=== PATIENT | female | born 1990 | race Caucasian/White ===

== ENCOUNTER 2017-03-02 09:21 | Inpatient (IN) | payer OTHER ==
--- NOTE | 2017-03-02 09:38 | PDOC ---
History of Present Illness <Chilo Whyte - Last Filed: 03/02/17 18:12> - General History Source: Patient Exam Limitations: No Limitations - History of Present Illness Initial Comments: 03/02/17 10:32 The patient is a 26 year old female with no significant past medical history, who presents to the ED with lower left abdominal pain since 6 AM today. Patient states she has associated symptoms of nausea and vomiting. She states she hasn' t eaten anything all day. She had advil but with little to no alleviation. Patient states her last bowel movement was yesterday. Patient denies fever, chills, diarrhea, constipation, hematochezia. Denies dysuria, frequency, hematuria. LMP: Currently 3 days in. <Ben Benito - Last Filed: 03/02/17 18:36> - General Stated Complaint: ABDOMINAL PAIN Past History - Past Medical History Asthma: No Cancer: No Cardiac Disorders: No Diabetes: No HTN: No Seizures: No Thyroid Disease: No - Psycho/Social/Smoking Cessation Hx Smoking History: Never smoked Have you smoked in the past 12 months: No Hx Alcohol Use: No Drug/Substance Use Hx: No Hx Substance Use Treatment: No <Chilo Whyte - Last Filed: 03/02/17 18:12> <Ben Benito - Last Filed: 03/02/17 18:36> - Past Medical History Allergies/Adverse Reactions: Allergies Allergy/AdvReac Type Severity Reaction Status Date / Time No Known Allergies Allergy Verified 03/02/17 09:34 Home Medications: Ambulatory Orders NK [No Known Home Medication] 03/02/17 Review of Systems - Review of Systems Able to Perform ROS?: Yes Comments:: 03/02/17 10:32 GENERAL/CONSTITUTIONAL: No fever or chills. No weakness. HEAD, EYES, EARS, NOSE AND THROAT: No change in vision. No ear pain or discharge. No sore throat. CARDIOVASCULAR: No chest pain or shortness of breath. RESPIRATORY: No cough, wheezing, or hemoptysis. GASTROINTESTINAL: + lower left quadrant abdominal pain. + nausea + vomiting. No diarrhea or constipation. GENITOURINARY: No dysuria, frequency, or change in urination. MUSCULOSKELETAL: No joint or muscle swelling or pain. No neck or back pain. SKIN: No rash NEUROLOGIC: No headache, vertigo, loss of consciousness, or change in strength/ sensation. ENDOCRINE: No increased thirst. No abnormal weight change. HEMATOLOGIC/LYMPHATIC: No anemia, easy bleeding, or history of blood clots. ALLERGIC/IMMUNOLOGIC: No hives or skin allergy. <Ben Benito - Last Filed: 03/02/17 18:36> *Physical Exam - Vital Signs Last Vital Signs Temp Pulse Resp BP Pulse Ox 97.4 F L 63 18 112/74 98 03/02/17 09:34 03/02/17 09:34 03/02/17 09:34 03/02/17 09:34 03/02/17 09:34 - Physical Exam Comments: 03/02/17 10:33 GENERAL: Awake, alert, and fully oriented, in no acute distress HEAD: No signs of trauma EYES: PERRLA, EOMI, sclera anicteric, conjunctiva clear ENT: Auricles normal inspection, hearing grossly normal, nares patent, oropharynx clear without exudates. Moist mucosa NECK: Normal ROM, supple, no lymphadenopathy, JVD, or masses LUNGS: Breath sounds equal, clear to auscultation bilaterally. No wheezes, and no crackles HEART: Regular rate and rhythm, normal S1 and S2, no murmurs, rubs or gallops ABDOMEN: Tender in left lower quadrant. But not over the anexa. No peritoneal signs or rebound. Soft, normoactive bowel sounds. No guarding, no rebound. No masses. EXTREMITIES: Normal range of motion, no edema. No clubbing or cyanosis. No cords, erythema, or tenderness NEUROLOGICAL: Cranial nerves II through XII grossly intact. Normal speech, normal gait SKIN: Warm, Dry, normal turgor, no rashes or lesions noted. <Ben Benito - Last Filed: 03/02/17 18:36> ED Treatment Course - LABORATORY CBC & Chemistry Diagram: 03/02/17 10:02 03/02/17 10:02 <Chilo Whyte - Last Filed: 03/02/17 18:12> - LABORATORY CBC & Chemistry Diagram: 03/02/17 10:02 03/02/17 10:02 - RADIOLOGY Radiology Studies Ordered: 03/02/17 17:52 EXAM: CT ABDOMEN AND PELVIS WITH IV AND ORAL CONTRAST REASON FOR EXAM: Abdominal pain COMPARISON: None FINDINGS: Lower lung delcid are clear. The gallbladder is distended with edematous appearing gallbladder wall. There are 2 large 2-3 cm size gallstone near the gallbladder neck. Liver, pancrease, spleen , adrenal glands are within normal. No renal stones are seen or evidence of obstructive uropathy. Abdominal aorta without AAA or dissection. IVC patent. There is no retroperitoneal hemorrhage or pathologic adenopathy. The appendix is normal. No evidence of bowel obstruction, ascites, abscess, free air or diverticulitis. Bladder and uterus grossly unremarkable. Spine and bony pelvis is without fracture or destructive suspicious lesion. IMPRESSION: Cholelithiasis with distended and edematous gallbladder wall suggesting cholecystitis Appendix normal THIS DOCUMENT HAS BEEN ELECTRONICALLY SIGNED Beata Waldrop D.O. - Medications Given in the ED: ED Medications Discontinued Medications Generic Name Dose Route Start Last Admin Trade Name Freq PRN Reason Stop Dose Admin Morphine Sulfate 4 mg 03/02/17 10:03 03/02/17 10:16 Morphine Injection - IVPUSH 03/02/17 10:04 4 mg ONCE ONE Administration Ondansetron HCl 4 mg 03/02/17 10:03 03/02/17 10:16 Zofran Injection IVPUSH 03/02/17 10:04 4 mg ONCE ONE Administration <Ben Benito - Last Filed: 03/02/17 18:36> Medical Decision Making - Medical Decision Making 03/02/17 18:[address] Cardoza. <Ben Benito - Last Filed: 03/02/17 18:36> *DC/Admit/Observation/Transfer - Discharge Dispostion Admit: Yes - Attestations Physician Attestion: 03/02/17 09:37 I, Dr. Chilo Whyte, attest that this document has been prepared under my direction and personally reviewed by me in its entirety. I further attest, that it accurately reflects all work, treatment, procedures and medical decision -making performed by me. <Chilo Whyte - Last Filed: 03/02/17 18:12> - Attestations Scribe Attestion: 03/02/17 10:34 Documentation prepared by Ben Benito, acting as medical sonographer for Chilo Whyte MD/. <Ben Benito - Last Filed: 03/02/17 18:36> Diagnosis at time of Disposition: Acute cholecystitis due to biliary calculus - Discharge Dispostion Condition at time of disposition: Unchanged/Unknown
[2017-03-02] MEDS ORDERED: ONDANSETRON 4 MG/2 ML VIAL IVPUSH ONE ×2 (10:03→14:34)
[2017-03-02] MEDS ORDERED: morphine CARPU-JECT 4 MG/1 ML DISP.SYRIN IVPUSH ONE (10:03)
[2017-03-02] MEDS ORDERED: SODIUM CHLORIDE 1,000 ML IV STA ×2 (10:05→14:11)
[2017-03-02] MEDS ORDERED: ONDANSETRON 4 MG/2 ML VIAL ONE ×2 (10:06→14:35)
[2017-03-02] MEDS ORDERED: morphine CARPU-JECT 4 MG/1 ML DISP.SYRIN ONE (10:06)
[2017-03-02 10:39] LABS: BASOPHIL 0.3 % (0-2.0); EOSINOPHIL 0.2 % (0-4.5); MCH 30.9 pg (25.7-33.7); MEAN CELL VOLUME 93.5 fl (80-96); MEAN PLT VOLUME 10.3 fl (7.5-11.1); NEUTROPHILS 80.1 % (42.8-82.8); PLATELET COUNT 171 K/MM3 (134-434); RDW 13.8 % (11.6-15.6); WHITE BLOOD COUNT 8.6 K/mm3 (4.0-10.0)
[2017-03-02 10:56] LABS: ALBUMIN 3.5 g/dl (3.4-5.0); ALK PHOS 66 U/L (45-117); ANION GAP 7 (8-16); BILIRUBIN,TOTAL 0.3 mg/dL (0.2-1.0); CALCIUM 8.7 mg/dL (8.5-10.1); CO2 26 mmol/L (21-32); CREATININE 0.8 mg/dL (0.55-1.02); GLUCOSE,RANDOM 96 mg/dL (74-106); SGOT/AST 21 U/L (15-37); SGPT/ALT 31 U/L (12-78); TOT PROT 7.3 g/dl (6.4-8.2)
[2017-03-02 10:58] LABS: INR 1.09 (0.82-1.09)
[2017-03-02 14:00] LABS: URINE APPEARANCE CLEAR; URINE BILIRUBIN NEGATIVE (NEGATIVE); URINE BLOOD 3+ (NEGATIVE); URINE COLOR LTYELLOW; URINE GLUCOSE (UA) NEGATIVE (NEGATIVE); URINE KETONE 1+ (NEGATIVE); URINE LEUK ESTERASE NEGATIVE (NEGATIVE); URINE NITRITE NEGATIVE (NEGATIVE); URINE PROTEIN NEGATIVE (NEGATIVE); URINE UROBILINOGEN NEGATIVE mg/dL (0.2-1.0)
[2017-03-02] MEDS ORDERED: KETOROLAC TROMETHAMINE 30 MG/1 ML VIAL ONE (14:10)
[2017-03-02] MEDS ORDERED: KETOROLAC TROMETHAMINE 30 MG/1 ML VIAL IVPUSH ONE (14:11)
[2017-03-02 14:24] LABS: URINE BACTERIA RARE /hpf (NONE SEEN); URINE MUCUS RARE; URINE RBC 1 /hpf (0-3); URINE WBC 6 /hpf (3-5)
[2017-03-02] MEDS ORDERED: LEVOFLOXACIN 500 MG IVPB 100 ML IVPB ONE ×2 (19:35→19:46)
[2017-03-02] MEDS ORDERED: METRONIDAZOLE 500 MG PREMIXED 100 ML IVPB ONE ×2 (19:36→19:46)
--- NOTE | 2017-03-02 19:51 | PN ---
Teaching Attending Note Name of Resident: Daryl Zelaya ATTENDING PHYSICIAN STATEMENT I saw and evaluated the patient. I reviewed the resident's note and discussed the case with the resident. I agree with the resident's findings and plan as documented. SUBJECTIVE: 26 yo F with no Pmhx who presents w LL abdominal pain. Pain started at 6 am. Also, notes associated nausea and vomiting. Denies any fevers or chills. Currently denies any n/v/d. No chest pain or pressure. States pain is also on her right side. Notes no continued nausea and vomiting. OBJECTIVE: Physical: VS: GEN: NAD, resting in bed HEENT: NCAT, PERRL, Throat without erythema or exudates CARD: RRR S1, S2 RESP: CTAB ABD: BS X4, Right upper quadrant pain on palpation EXT: - C/C/E CBCD WBC 8.6 K/mm3 (4.0-10.0) D 03/02/17 10:02 RBC 4.12 M/mm3 (3.60-5.2) 03/02/17 10:02 Hgb 12.7 GM/dL (10.7-15.3) 03/02/17 10:02 Hct 38.6 % (32.4-45.2) 03/02/17 10:02 MCV 93.5 fl (80-96) 03/02/17 10:02 MCHC 33.0 g/dl (32.0-36.0) 03/02/17 10:02 RDW 13.8 % (11.6-15.6) 03/02/17 10:02 Plt Count 171 K/MM3 (134-434) D 03/02/17 10:02 MPV 10.3 fl (7.5-11.1) 03/02/17 10:02 CMP Sodium 141 mmol/L (136-145) 03/02/17 10:02 Potassium 3.9 mmol/L (3.5-5.1) 03/02/17 10:02 Chloride 108 mmol/L (98-107) H 03/02/17 10:02 Carbon Dioxide 26 mmol/L (21-32) D 03/02/17 10:02 Anion Gap 7 (8-16) L 03/02/17 10:02 BUN 10 mg/dL (7-18) D 03/02/17 10:02 Creatinine 0.8 mg/dL (0.55-1.02) D 03/02/17 10:02 Creat Clearance w eGFR > 60 (>60) 03/02/17 10:02 Random Glucose 96 mg/dL (74-106) 03/02/17 10:02 Calcium 8.7 mg/dL (8.5-10.1) 03/02/17 10:02 Total Bilirubin 0.3 mg/dL (0.2-1.0) 03/02/17 10:02 AST 21 U/L (15-37) 03/02/17 10:02 ALT 31 U/L (12-78) 03/02/17 10:02 Alkaline Phosphatase 66 U/L (45-117) 03/02/17 10:02 Total Protein 7.3 g/dl (6.4-8.2) 03/02/17 10:02 Albumin 3.5 g/dl (3.4-5.0) 03/02/17 10:02 03/02/17 17:52 EXAM: CT ABDOMEN AND PELVIS WITH IV AND ORAL CONTRAST REASON FOR EXAM: Abdominal pain COMPARISON: None FINDINGS: Lower lung delcid are clear. The gallbladder is distended with edematous appearing gallbladder wall. There are 2 large 2-3 cm size gallstone near the gallbladder neck. Liver, pancrease, spleen , adrenal glands are within normal. No renal stones are seen or evidence of obstructive uropathy. Abdominal aorta without AAA or dissection. IVC patent. There is no retroperitoneal hemorrhage or pathologic adenopathy. The appendix is normal. No evidence of bowel obstruction, ascites, abscess, free air or diverticulitis. Bladder and uterus grossly unremarkable. Spine and bony pelvis is without fracture or destructive suspicious lesion. IMPRESSION: Cholelithiasis with distended and edematous gallbladder wall suggesting cholecystitis Appendix normal THIS DOCUMENT HAS BEEN ELECTRONICALLY SIGNED Sonia Ponce ASSESSMENT AND PLAN: 26 F with no pmhx presents with abdominal pain found to have acute choleycystitis 1.) Acute Choleycystitis - NPO - IVF - Levaquin/Flagyl - Surgical consult - Coags, cbc - Type & Screen - Pain Control 2.) DVT PPX - Low Risk- Ambulate Place in Med-Sx
--- NOTE | 2017-03-02 20:23 | HP ---
CHIEF COMPLAINT: Left lower abdominal pain, Nausea, vomiting. PCP: NO PCP , Last seen by Doctor 2 years ago. HISTORY OF PRESENT ILLNESS: Patient is 26 Years old female with no PMH who presented to the Ed today due to left lower quadrant abdominal pain, associated with nausea and vomiting. The pain started at 6 AM , 10/10, non radiated, constant, worsen with food, improves a little with advil. She had four episode of non bloody, green, vomiting. She had similar symptoms multiple times last month, and tow years ago. Patient denies any fever, chills, sick contact, Diarrhea, constipation, change in stool color, Hematochezia, hemoptysis, hematuria. She denies any headache, blurry vision, chest pain , palpitation, or urinary symptoms. Her last Menstrual period 3 days in. ER course was notable for: (1)IV fluids NS (2)Pain control: IV Morphine (3)CXR: No acute pathology Recent Travel:NO PAST MEDICAL HISTORY:None PAST SURGICAL HISTORY:None Social History: Smoking:None Alcohol:None Drugs: None Family History: Allergies No Known Allergies Allergy (Verified 03/02/17 09:34) HOME MEDICATIONS: Home Medications Medication Instructions Recorded NK [No Known Home Medication] 03/02/17 REVIEW OF SYSTEMS CONSTITUTIONAL: Absent: fever, chills, diaphoresis, generalized weakness, malaise, loss of appetite, weight change HEENT: Absent: rhinorrhea, nasal congestion, throat pain, throat swelling, difficulty swallowing, mouth swelling, ear pain, eye pain, visual changes CARDIOVASCULAR: Absent: chest pain, syncope, palpitations, irregular heart rate, lightheadedness , peripheral edema RESPIRATORY: Absent: cough, shortness of breath, dyspnea with exertion, orthopnea, wheezing, stridor, hemoptysis GASTROINTESTINAL: Absent:Left periumbilical abdominal pain, abdominal distension,+ nausea, vomiting, diarrhea, constipation, melena, hematochezia GENITOURINARY: Absent: dysuria, frequency, urgency, hesitancy, hematuria, flank pain, genital pain MUSCULOSKELETAL: Absent: myalgia, arthralgia, joint swelling, back pain, neck pain SKIN: Absent: rash, itching, pallor HEMATOLOGIC/IMMUNOLOGIC: Absent: easy bleeding, easy bruising, lymphadenopathy, frequent infections ENDOCRINE: Absent: unexplained weight gain, unexplained weight loss, heat intolerance, cold intolerance NEUROLOGIC: Absent: headache, focal weakness or paresthesias, dizziness, unsteady gait, seizure, mental status changes, bladder or bowel incontinence PSYCHIATRIC: Absent: anxiety, depression, suicidal or homicidal ideation, hallucinations. PHYSICAL EXAMINATION Vital Signs - 24 hr 03/02/17 20:05 Pulse Rate [ 76 Apical] Respiratory 18 Rate Blood Pressure 119/83 [Right Arm] O2 Sat by Pulse 99 Oximetry (%) GENERAL: Awake, alert, and fully oriented, in no acute distress. Moist mucous membranes. HEAD: Normal with no signs of trauma. EYES: Pupils equal, round and reactive to light, extraocular movements intact, sclera anicteric, conjunctiva clear. No lid lag. NECK: Normal range of motion, supple without lymphadenopathy, JVD, or masses. LUNGS: Breath sounds equal, clear to auscultation bilaterally. No wheezes, and no crackles. No accessory muscle use. HEART: Regular rate and rhythm, normal S1 and S2 without murmur, rub or gallop. ABDOMEN: Soft, L periumbilical tenderness, not distended, normoactive bowel sounds, no guarding, no rebound, no masses. No hepatomegaly or splenomegaly.+ Linares sign. Tender to deep palpation in RUQ. MUSCULOSKELETAL: Normal range of motion at all joints. No bony deformities or tenderness. No CVA tenderness. UPPER EXTREMITIES: 2+ pulses, warm, well-perfused. No cyanosis. No clubbing. No peripheral edema. LOWER EXTREMITIES: 2+ pulses, warm, well-perfused. No calf tenderness. No peripheral edema. NEUROLOGICAL: Normal speech. Normal gait. PSYCHIATRIC: Cooperative. Good eye contact. Appropriate mood and affect. SKIN: Warm, dry, normal turgor, no rashes or lesions noted, normal capillary refill. CBC,CMP WBC 8.6 K/mm3 (4.0-10.0) D 03/02/17 10:02 RBC 4.12 M/mm3 (3.60-5.2) 03/02/17 10:02 Hgb 12.7 GM/dL (10.7-15.3) 03/02/17 10:02 Hct 38.6 % (32.4-45.2) 03/02/17 10:02 MCV 93.5 fl (80-96) 03/02/17 10:02 MCH 30.9 pg (25.7-33.7) 03/02/17 10:02 MCHC 33.0 g/dl (32.0-36.0) 03/02/17 10:02 RDW 13.8 % (11.6-15.6) 03/02/17 10:02 Plt Count 171 K/MM3 (134-434) D 03/02/17 10:02 MPV 10.3 fl (7.5-11.1) 03/02/17 10:02 Neutrophils % 80.1 % (42.8-82.8) 03/02/17 10:02 Lymphocytes % 13.2 % (8-40) D 03/02/17 10:02 Monocytes % 6.2 % (3.8-10.2) 03/02/17 10:02 Eosinophils % 0.2 % (0-4.5) 03/02/17 10:02 Basophils % 0.3 % (0-2.0) 03/02/17 10:02 Sodium 141 mmol/L (136-145) 03/02/17 10:02 Potassium 3.9 mmol/L (3.5-5.1) 03/02/17 10:02 Chloride 108 mmol/L (98-107) H 03/02/17 10:02 Carbon Dioxide 26 mmol/L (21-32) D 03/02/17 10:02 Anion Gap 7 (8-16) L 03/02/17 10:02 BUN 10 mg/dL (7-18) D 03/02/17 10:02 Creatinine 0.8 mg/dL (0.55-1.02) D 03/02/17 10:02 Creat Clearance w eGFR > 60 (>60) 03/02/17 10:02 Random Glucose 96 mg/dL (74-106) 03/02/17 10:02 Calcium 8.7 mg/dL (8.5-10.1) 03/02/17 10:02 Total Bilirubin 0.3 mg/dL (0.2-1.0) 03/02/17 10:02 AST 21 U/L (15-37) 03/02/17 10:02 ALT 31 U/L (12-78) 03/02/17 10:02 Alkaline Phosphatase 66 U/L (45-117) 03/02/17 10:02 Total Protein 7.3 g/dl (6.4-8.2) 03/02/17 10:02 Albumin 3.5 g/dl (3.4-5.0) 03/02/17 10:02 Lipase 83 U/L (73-393) 03/02/17 10:02 Serum , Qual Negative 03/02/17 10:02 EXAM: CT ABDOMEN AND PELVIS WITH IV AND ORAL CONTRAST REASON FOR EXAM: Abdominal pain COMPARISON: None FINDINGS: Lower lung delcid are clear. The gallbladder is distended with edematous appearing gallbladder wall. There are 2 large 2-3 cm size gallstone near the gallbladder neck. Liver, pancrease, spleen , adrenal glands are within normal. No renal stones are seen or evidence of obstructive uropathy. Abdominal aorta without AAA or dissection. IVC patent. There is no retroperitoneal hemorrhage or pathologic adenopathy. The appendix is normal. No evidence of bowel obstruction, ascites, abscess, free air or diverticulitis. Bladder and uterus grossly unremarkable. Spine and bony pelvis is without fracture or destructive suspicious lesion. IMPRESSION: Cholelithiasis with distended and edematous gallbladder wall suggesting cholecystitis Appendix normal CXR: No acute pathology ASSESSMENT/PLAN: Patient is 26 Years old female with no PMH who presented to the Ed today due to left lower quadrant abdominal pain, associated with nausea and vomiting. She was found to have 2 large 2-3 cm size gallstone , with edematous distended gallbladder on abdominal CT. She was admitted to med-surg for evaluation and management. # Acute Cholecystitis * Normal WBC, AST ALT, ALP WNL * IVF NS 100 CC/hr * Pain control Morphine 1 MG IV Q 4 hr PRN * Antibiotics Levofloxacin 500 mg IV Q 24 next dose tomorrow 7.30 AM , Flagyl 500 mg IV Q 8 Hr * Consult surgery * NPO after mid night , Possible procedure tomorrow * PT/INR, APTT * Type and screen * * * * # F/E/N IVF NS @ 100cc HR Electrolytes WNL N: Regular diet , NPO after med night # Proph DVT proph: low risk, Early ambulatory GI Proh: no need for now # Dispo Admit to med-surg Full code Patient was discussed with and medical team Daryl Zelaya MD. PGY1 Visit type - Emergency Visit Emergency Visit: Yes ED Registration Date: 07/30/17 Care time: The patient presented to the Emergency Department on the above date and was hospitalized for further evaluation of their emergent condition. - New Patient This patient is new to me today: Yes Date on this admission: 03/03/17 - Critical Care Critical Care patient: No
[2017-03-02] MEDS: SODIUM CHLORIDE 1,000 ML IV SCH (21:51)
[2017-03-02] MEDS: morphine CARPU-JECT 4 MG/1 ML DISP.SYRIN IVPUSH PRN (21:51)
[2017-03-02 23:00] VITALS: BMI 24.4
[2017-03-03] MEDS ORDERED: ONDANSETRON 4 MG/2 ML VIAL ONE (00:10)
[2017-03-03] MEDS: ONDANSETRON 4 MG/2 ML VIAL IVPUSH PRN ×2 (00:12→12:07)
[2017-03-03] MEDS: METRONIDAZOLE 500 MG PREMIXED 100 ML IVPB SCH ×2 (02:42→09:25)
[2017-03-03] MEDS: morphine CARPU-JECT 4 MG/1 ML DISP.SYRIN IVPUSH PRN ×2 (05:41→09:55)
[2017-03-03] MEDS ORDERED: LEVOFLOXACIN 500 MG IVPB 100 ML IVPB ONE ×2 (07:30→20:30)
[2017-03-03 08:14] LABS: MCH 30.5 pg (25.7-33.7); MEAN CELL VOLUME 92.5 fl (80-96); MEAN PLT VOLUME 10.4 fl (7.5-11.1); PLATELET COUNT 160 K/MM3 (134-434); RDW 13.5 % (11.6-15.6); WHITE BLOOD COUNT 8.6 K/mm3 (4.0-10.0)
[2017-03-03 08:41] LABS: ALBUMIN 2.9 g/dl (3.4-5.0); SGOT/AST 13 U/L (15-37)
[2017-03-03 08:43] LABS: INR 1.28 (0.82-1.09); PROTHROMBIN TIME (PATIENT) 14.1 SEC (9.98-11.88)
[2017-03-03 08:46] LABS: ALK PHOS 61 U/L (45-117); ANION GAP 6 (8-16); BILIRUBIN,TOTAL 0.6 mg/dL (0.2-1.0); CALCIUM 7.8 mg/dL (8.5-10.1); CO2 26 mmol/L (21-32); CREATININE 0.6 mg/dL (0.55-1.02); GLUCOSE,RANDOM 98 mg/dL (74-106); SGPT/ALT 24 U/L (12-78)
--- NOTE | 2017-03-03 09:57 | CONSULT ---
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 PMHx: none PSHx: none Home Medications Medication Instructions Recorded NK [No Known Home Medication] 03/02/17 Allergies Allergy/AdvReac Type Severity Reaction Status Date / Time No Known Allergies Allergy Verified 03/02/17 09:34 PHYSICAL EXAM: GENERAL: Awake, alert, and fully oriented, in no acute distress. HEAD: Normal with no signs of trauma. EYES: sclera anicteric, conjunctiva clear. NECK: Normal ROM, supple without lymphadenopathy, JVD, or masses. LABDOMEN: Soft, tender RUQ to deep palpation, not distended, normoactive bowel sounds, positive guarding in the RUQ, no rebound, no masses. No organomegaly. No hernias MUSCULOSKELETAL: Normal ROM at all joints. No bony deformities or tenderness. No CVA tenderness. UPPER EXTREMITIES: 2+ pulses, warm, well-perfused. No cyanosis. Cap refill <2 seconds. No peripheral edema. LOWER EXTREMITIES: 2+ pulses, warm, well-perfused. No calf tenderness. No peripheral edema. NEUROLOGICAL: Normal speech, gait not observed. PSYCH: Cooperative. Good eye contact. Appropriate mood and affect. SKIN: Warm, dry, normal turgor, no rashes or lesions noted. Vital Signs Temperature 98.4 F 03/03/17 06:00 Pulse Rate 84 03/03/17 06:00 Respiratory Rate 20 03/03/17 06:00 Blood Pressure 105/80 03/03/17 06:00 O2 Sat by Pulse Oximetry (%) 99 03/02/17 22:53 Lab Results WBC 8.6 K/mm3 (4.0-10.0) 03/03/17 06:40 RBC 3.95 M/mm3 (3.60-5.2) 03/03/17 06:40 Hgb 12.1 GM/dL (10.7-15.3) 03/03/17 06:40 Hct 36.5 % (32.4-45.2) 03/03/17 06:40 MCV 92.5 fl (80-96) 03/03/17 06:40 MCHC 33.0 g/dl (32.0-36.0) 03/03/17 06:40 RDW 13.5 % (11.6-15.6) 03/03/17 06:40 Plt Count 160 K/MM3 (134-434) 03/03/17 06:40 Sodium 138 mmol/L (136-145) 03/03/17 06:40 Potassium 3.5 mmol/L (3.5-5.1) 03/03/17 06:40 Chloride 106 mmol/L (98-107) 03/03/17 06:40 Carbon Dioxide 26 mmol/L (21-32) 03/03/17 06:40 Anion Gap 6 (8-16) L 03/03/17 06:40 BUN 3 mg/dL (7-18) L D 03/03/17 06:40 Creatinine 0.6 mg/dL (0.55-1.02) D 03/03/17 06:40 Random Glucose 98 mg/dL (74-106) 03/03/17 06:40 Calcium 7.8 mg/dL (8.5-10.1) L 03/03/17 06:40 Blood Type O POSITIVE 03/02/17 21:30 Antibody Screen Negative 03/02/17 21:30 INR 1.28 (0.82-1.09) H 03/03/17 07:58 CTa/p and labs reviewed IMP: acute cholecystitis/cholelithiais PLAN; D/W patient lap clyde possible open as definitive tx.; r/b/t/a's d/w her and she wishes to proceed; d/w her possibility of retained CBD stones possibly requiring other procedures; she understands this. Mati Cardoza MD FACS Visit type - Case Type Case Type: ED Admission - Emergency Emergency Visit: Yes ED Registration Date: 03/02/17 Care time: The patient presented to the Emergency Department on the above date and was hospitalized for further evaluation of their emergent condition. - New patient This patient is new to me today: Yes Date on this admission: 03/03/17 - Critical Care Critical Care patient: No
[2017-03-03] MEDS: SODIUM CHLORIDE 1,000 ML IV SCH (12:04)
[2017-03-03] MEDS ORDERED: morphine CARPU-JECT 4 MG/1 ML DISP.SYRIN IVPUSH PRN ×3 (13:26→18:08)
--- NOTE | 2017-03-03 13:52 | PN ---
Teaching Attending Note Name of Resident: Luisito Clark ATTENDING PHYSICIAN STATEMENT I saw and evaluated the patient. I reviewed the resident's note and discussed the case with the resident. I agree with the resident's findings and plan as documented. SUBJECTIVE:states pain is controlled with pain medications. been having these symptoms for the past month but no similar episodes in the past. denies CP, SOB , fever, chills, N/V/C/D OBJECTIVE: Last Vital Signs Temp Pulse Resp BP Pulse Ox 99.1 F 80 20 113/72 99 03/03/17 10:00 03/03/17 10:00 03/03/17 10:00 03/03/17 10:03/03/17 09:00 General NAD Abdomen NT/ND soft Negative rodriguez sign ASSESSMENT AND PLAN: 26 yo F with no PMH presented to ER with RUQ pain and found to have acute cholecysitis 1. Acute cholecysitis- clinically improved. NPO for surgery today. on Flagyl/ Levaquin day 2. cont IVF, pain and nausea control. further management per surgery. 2. DVT ppx- hep sq after surgery
[2017-03-03] MEDS ORDERED: ROCURONIUM BROMIDE 50 MG/5 ML VIAL ONE (15:00)
[2017-03-03] MEDS ORDERED: PROPOFOL 20 ML ONE ×2 (15:00→16:52)
[2017-03-03] MEDS ORDERED: MIDAZOLAM HCL 2 MG/2 ML SINGLE DOSE VIAL ONE (15:00)
[2017-03-03] MEDS ORDERED: DEXAMETHASONE SOD PHOSPHATE 4 MG/1 ML VIAL ONE (15:26)
[2017-03-03] MEDS ORDERED: BUPIVACAINE HCL/PF 0.5% (5MG/ML) 10 ML VIAL IJ ONE (15:45)
[2017-03-03] MEDS ORDERED: SEVOFLURANE 250 ML BTL ONE (15:51)
[2017-03-03] MEDS ORDERED: GLYCOPYRROLATE 0.2 MG/1 ML VIAL ONE ×2 (16:22)
[2017-03-03] MEDS ORDERED: NEOSTIGMINE METHYLSULFATE 0.5 MG/ML - 10 ML MDV ONE (16:22)
[2017-03-03] MEDS ORDERED: PROMETHAZINE HCL 25 MG/1 ML VIAL IVPUSH PRN ×2 (17:12→17:59)
--- NOTE | 2017-03-03 17:13 | OP ---
Operative Note - Note: Operative Date: 03/03/17 Pre-Operative Diagnosis: acute cholecystitis Operation: laparoscopic cholecystectomy Surgeon: Mati Cardoza Client Sales And Service Officer: Kasia Rios Anesthesiologist/SUPERVISORY LIFEGUARD: Moisés Márquez Anesthesia: General Specimens Removed: gallbladder Estimated Blood Loss (mls): 50 Fluid Volume Replaced (mls): 1,600 Operative Report Dictated: Yes
[2017-03-03] MEDS ORDERED: LACTATED RINGERS SOLUTION 1,000 ML IV SCH (17:15)
[2017-03-03] MEDS ORDERED: oxyCODONE HCL 5 MG TABLET PO PRN ×2 (17:18)
--- NOTE | 2017-03-03 17:22 | SURG ---
Surgery Design Consultant Note Design Consultant: Kasia Rios PA-C Date of Service: 03/03/17 Diagnosis: acute cholecystits Procedure: laparoscopic cholecystectomy I was present for the entirety of the operative procedure. For further detail, please refer to operative report. Visit type - Case Type Case Type: ED Admission - Emergency Emergency Visit: Yes ED Registration Date: 03/02/17 Care time: The patient presented to the Emergency Department on the above date and was hospitalized for further evaluation of their emergent condition. - New patient This patient is new to me today: Yes Date on this admission: 03/03/17 - Critical Care Critical Care patient: No
--- NOTE | 2017-03-03 17:28 | PN ---
Physical Exam: SUBJECTIVE: Patient seen and examined Pain is controlled with the medication however patient would like the medication to last longer. OBJECTIVE: Vital Signs Period Temp Pulse Resp BP Sys/Farmer Pulse Ox Last 24 Hr 98.4 F-99.1 F 58-84 18-20 103-119/72-83 99-99 GENERAL: The patient is awake, alert, and fully oriented, in no acute distress. HEAD: Normal with no signs of trauma. EYES: Extraocular movements intact, sclera anicteric, conjunctiva clear. No ptosis. ENT: Ears normal, nares patent, oropharynx clear without exudates, moist mucous membranes. NECK: Trachea midline, full range of motion, supple. LUNGS: Breath sounds equal, clear to auscultation bilaterally, no wheezes, no crackles, no accessory muscle use. HEART: Regular rate and rhythm, S1, S2 without murmur, rub or gallop. ABDOMEN: Soft, +tenderness to LUQ and LLQ, nondistended, normoactive bowel sounds, no guarding, no rebound, no hepatosplenomegaly, no masses. + rodriguez's sign EXTREMITIES: 2+ pulses, warm, well-perfused, no edema. NEUROLOGICAL: Cranial nerves II through XII grossly intact. Normal speech, gait not observed. PSYCH: Normal mood, normal affect. SKIN: Warm, dry, normal turgor, no rashes or lesions noted Laboratory Results - last 24 hr 03/02/17 03/03/17 03/03/17 21:30 06:40 06:40 WBC 8.6 RBC 3.95 Hgb 12.1 Hct 36.5 MCV 92.5 MCH 30.5 MCHC 33.0 RDW 13.5 Plt Count 160 MPV 10.4 INR PTT (Actin FS) 27.3 Sodium Potassium Chloride Carbon Dioxide Anion Gap BUN Creatinine Creat Clearance w eGFR Random Glucose Calcium Total Bilirubin AST ALT Alkaline Phosphatase Total Protein Albumin Blood Type O POSITIVE Antibody Screen Negative 03/03/17 03/03/17 06:40 07:58 WBC RBC Hgb Hct MCV MCH MCHC RDW Plt Count MPV INR 1.28 H PTT (Actin FS) Sodium 138 Potassium 3.5 Chloride 106 Carbon Dioxide 26 Anion Gap 6 L BUN 3 L D Creatinine 0.6 D Creat Clearance w eGFR > 60 Random Glucose 98 Calcium 7.8 L Total Bilirubin 0.6 D AST 13 L D ALT 24 D Alkaline Phosphatase 61 Total Protein 6.0 L Albumin 2.9 L Blood Type Antibody Screen Active Medications Generic Name Dose Route Start Last Admin Trade Name Freq PRN Reason Stop Dose Admin Heparin Sodium (Porcine) 5,000 unit 03/03/17 22:00 Heparin - SQ BID JEAN Sodium Chloride 1,000 mls @ 100 mls/hr 03/02/17 21:00 03/03/17 12:04 Normal Saline - IV 03/04/17 06:59 100 mls/hr ASDIR JEAN Administration Metronidazole 100 mls @ 100 mls/hr 03/03/17 03:00 03/03/17 09:25 Flagyl 500mg Premixed Ivpb - IVPB 100 mls/hr Q8H-IV JEAN Administration Levofloxacin 100 mls @ 100 mls/hr 03/04/17 08:30 Levaquin 500 Mg Premixed Ivpb - IVPB 03/04/17 09:29 ONCE ONE Lactated Ringer's 1,000 mls @ 125 mls/hr 03/03/17 17:15 Lactated Ringers Solution IV ASDIR JEAN Morphine Sulfate 1 mg 03/03/17 13:26 03/03/17 13:40 Morphine Injection - IVPUSH 1 mg Q3H PRN Administration PAIN Ondansetron HCl 4 mg 03/02/17 23:53 03/03/17 12:07 Zofran Injection IVPUSH 4 mg Q6H PRN Administration NAUSEA AND/OR VOMITING Oxycodone HCl 5 mg 03/03/17 17:18 Roxicodone - PO Q6H PRN PAIN LEVEL 1-5 Oxycodone HCl 10 mg 03/03/17 17:18 Roxicodone - PO Q6H PRN PAIN LEVEL 6-10 Promethazine HCl 12.5 mg 03/03/17 17:12 Phenergan Injection - IVPUSH 03/03/17 23:13 Q6H PRN NAUSEA ASSESSMENT/PLAN: 26 year old female with no PMH who presented to the ED with left lower quadrant abdominal pain, associated with nausea and vomiting. She was admitted for acute cholecystitis # Acute Cholecystitis * Patient is NPO for surgery today * Day 2 of Flagyl 500 mg IV q8h and Levofloxacin 500 mg IV q24 hrs * IVF at 100 cc/hr * Morphine 1mg Q3hr # F/E/N IVF NS @ 100cc HR Electrolytes WNL NPO # Proph DVT proph: low risk, Early ambulatory GI Proh: no need for now Visit type - Emergency Visit Emergency Visit: No - New Patient This patient is new to me today: Yes Date on this admission: 03/03/17 - Critical Care Critical Care patient: No
--- NOTE | 2017-03-03 17:46 | EKG ---
Test Reason : Blood Pressure : / mmHG Vent. Rate : 084 BPM Atrial Rate : 084 BPM P-R Int : 154 ms QRS Dur : 094 ms QT Int : 382 ms P-R-T Axes : 063 066 037 degrees QTc Int : 451 ms NORMAL SINUS RHYTHM NORMAL ECG NO PREVIOUS ECGS AVAILABLE Confirmed by CARMITA MAYES MD ([id number]) on 03/03/2017 5:46:15 PM Referred By: Confirmed By:CARMITA MAYES MD
[2017-03-03] MEDS ORDERED: ONDANSETRON 4 MG/2 ML VIAL IVPUSH PRN (17:59)
[2017-03-03] MEDS: LACTATED RINGERS SOLUTION 1,000 ML IV SCH (19:30)
[2017-03-03] MEDS: HEPARIN NA (PORCINE) 5,000 UNITS/ML 1ML VIAL SQ SCH (20:59)
[2017-03-04] MEDS ORDERED: oxyCODONE HCL 5 MG TABLET PO PRN (01:24)
[2017-03-04] MEDS: oxyCODONE HCL 5 MG TABLET PO PRN ×3 (01:31→09:31)
[2017-03-04] MEDS: LACTATED RINGERS SOLUTION 1,000 ML IV SCH (03:36)
[2017-03-04 07:48] LABS: BASOPHIL 0.1 % (0-2.0); MCH 30.8 pg (25.7-33.7); MCHC 33.4 g/dl (32.0-36.0); MEAN CELL VOLUME 92.3 fl (80-96); MEAN PLT VOLUME 10.4 fl (7.5-11.1); NEUTROPHILS 78.5 % (42.8-82.8); PLATELET COUNT 146 K/MM3 (134-434); RDW 13.6 % (11.6-15.6); WHITE BLOOD COUNT 8.6 K/mm3 (4.0-10.0)
[2017-03-04 08:10] LABS: ANION GAP 5 (8-16); CALCIUM 8.3 mg/dL (8.5-10.1); CO2 30 mmol/L (21-32); CREATININE 0.6 mg/dL (0.55-1.02); GLUCOSE,RANDOM 109 mg/dL (74-106)
[2017-03-04] MEDS ORDERED: LEVOFLOXACIN 500 MG IVPB 100 ML IVPB ONE (08:30)
[2017-03-04] MEDS: HEPARIN NA (PORCINE) 5,000 UNITS/ML 1ML VIAL SQ SCH ×2 (09:31→21:43)
[2017-03-04] MEDS ORDERED: ACETAMINOPHEN 325 MG TABLET (FP) PO SCH (10:00)
--- NOTE | 2017-03-04 10:05 | PN ---
Progress Note (short form) - Note Progress Note: POD#1 Pt with complaints of pain. No nausea but overall lack of appetite. Vital Signs Period Temp Pulse Resp BP Sys/Farmer Pulse Ox Last 24 Hr 98 F-99 F 57-78 11-20 96-121/54-83 95-100 MELVI-serosangrenous 30ml GEN: appears somewhat uncomfortable ABD: soft, non-distended, inc tenderness. Inc c/d/i with steri-strips/bandaids CBC, BMP // 06:00 // 06:00 A/P: 26 yo female s/p Lap clyde, POD#1 Pt with pain this am and medicated with oxycodone, MELVI is serosangrenous so will add toradol/tylenol to pain managment options. IV dose of toradol now and will hopefully be able to decreased oxycodone use. Will give IV LR bolus and then discontinue IV fluids so the patient can be more mobile. OOB/ambulate/Incentive spirometer today. IV levqauin/flagyl discontinue after am dose. fF pts pain and diet improved later today may pull the drain and be discharged. If not will continue the drain until the am. Pt seen and examined with Dr. Cardoza
[2017-03-04] MEDS ORDERED: LACTATED RINGERS SOLUTION 500 ML IV STA (10:13)
--- NOTE | 2017-03-04 10:38 | OP ---
DATE OF OPERATION: 03/03/2017 PREOPERATIVE DIAGNOSIS: Acute cholecystitis, cholelithiasis. POSTOPERATIVE DIAGNOSIS: Acute cholecystitis, cholelithiasis. PROCEDURE: Laparoscopic cholecystectomy. SURGEON: Mati Cardoza MD BUSINESS OFFICE COORDINATOR: SHANNA Weldon ANESTHESIA: General. OPERATIVE FINDINGS: Acute cholecystitis and cholelithiasis. The rest of the findings were unremarkable. DESCRIPTION OF PROCEDURE: The patient was placed on the operating room table in supine position. After the induction of general anesthesia, the patient's abdomen was prepped with ChloraPrep and draped in sterile fashion. Pneumoperitoneum was established above the umbilicus after a time-out was taken. Once 15 mmHg intra-abdominal pressure was achieved, a 5-mm supraumbilical port was placed. Additional 5-mm lateral ports in the subxiphoid 12-mm port were placed, and the previously noted findings were observed. The gallbladder was decompressed using an aspiration needle and then placed on cephalad and lateral retraction. Dissection was begun in the triangle of Calot with blunt and electrocautery dissection opening the peritoneum over the neck of the gallbladder. The cystic duct was then identified crossing from the neck of the gallbladder distally to the common bile duct. It was dissected proximally and distally for length. The artery was similarly identified and dissected. Critical view of safety was taken and the duct and artery were sequentially divided using endoshears after being clipped twice proximally and twice distally with large hemoclips. The gallbladder was then removed from the liver bed in a retrograde fashion using electrocautery. It was removed from the edge of the liver, placed in an EndoCatch, and brought out through the subxiphoid port. Pneumoperitoneum was reestablished, and copious irrigation was carried out until the effluent was clear. Hemostasis was achieved in the liver bed where there were bleeding points using electrocautery. Again, hemostasis was verified, and a then a 5-mm Dexter-Rizvi drain was placed in the right hepatorenal fossa and brought out through one of the 5-mm port sites and secured to the skin with 2-0 nylon suture. All ports were removed under laparoscopic vision without evidence of bleeding from the port sites and the pneumoperitoneum evacuated. Each port site was infiltrated with 0.5% Marcaine and the skin edges reapproximated with 4-0 Biosyn in a subcuticular, continuous fashion. Steri-Strips and Band-Aid dressings were placed and the procedure terminated at this point and the drain connected to bulb suction, and patient aroused from general anesthesia and transferred to the post anesthesia care unit in stable condition awake and alert. ESTIMATED BLOOD LOSS: 50 mL. REPLACEMENTS: Crystalloid. DRAINS: One 10-mm Dexter-Rizvi. SPECIMENS: Gallbladder and contents to pathology. I, Mati Cardoza, was physically present in the operating room from the time the patient was placed on the operating room table until she was transferred to the post anesthesia care unit in [place]. MD YARED Iverson/[id number]
[2017-03-04] MEDS ORDERED: SENNOSIDES 8.6MG TABLET (FP) PO PRN (10:54)
[2017-03-04] MEDS: KETOROLAC TROMETHAMINE 30 MG/1 ML VIAL IVPUSH PRN ×2 (10:57→18:57)
[2017-03-04] MEDS ORDERED: ONDANSETRON *ODT* 4 MG TABLET SL ONE (11:00)
[2017-03-04] MEDS: ACETAMINOPHEN 325 MG TABLET (FP) PO SCH ×2 (12:15→17:45)
--- NOTE | 2017-03-04 14:43 | PN ---
Progress Note (short form) - Note Progress Note: ANESTHESIOLOGY POST-OP CHECK 26F s/p laparoscopic cholecystectomy under general anesthesia, POD #1. Denies pain, c/o N/V. Ambulating, voiding. Vital Signs Temperature 98.2 F 03/04/17 09:00 Pulse Rate 74 03/04/17 09:00 Respiratory Rate 18 03/04/17 09:00 Blood Pressure 108/69 03/04/17 09:00 O2 Sat by Pulse Oximetry (%) 99 03/04/17 09:31 Active Medications Acetaminophen (Tylenol -) 650 mg PO Q6H [facility] Stop: 03/05/17 11:59 Last Admin: 03/04/17 12:15 Dose: 650 mg Heparin Sodium (Porcine) (Heparin -) 5,000 unit SQ BID JEAN Last Admin: 03/04/17 09:31 Dose: 5,000 unit Sodium Chloride (Normal Saline -) 1,000 mls @ 75 mls/hr IV ASDIR JEAN Ketorolac Tromethamine (Toradol Injection -) 30 mg IVPUSH Q8H-IV PRN PRN Reason: PAIN Stop: 03/05/17 10:00 Last Admin: 03/04/17 10:57 Dose: 30 mg Oxycodone HCl (Roxicodone -) 10 mg PO Q4H PRN PRN Reason: PAIN LEVEL 6-10 Last Admin: 03/04/17 09:31 Dose: 10 mg Promethazine HCl (Phenergan Injection -) 12.5 mg IVPB Q6H PRN PRN Reason: NAUSEA AND/OR VOMITING Senna (Senna -) 2 tab PO HS PRN PRN Reason: CONSTIPATION Gen: Awake, alert No apparent anesthesia complications, pain controlled. Continue management as per primary team.
[2017-03-04] MEDS: SODIUM CHLORIDE 1,000 ML IV SCH (15:11)
[2017-03-04] MEDS: PROMETHAZINE HCL 25 MG/1 ML VIAL IVPB PRN (15:50)
--- NOTE | 2017-03-04 16:47 | PN ---
Physical Exam: SUBJECTIVE: Patient seen and examined No acute events overnight. Patient complains of pain, N/V. Patient vomited after lunch. OBJECTIVE: Vital Signs Period Temp Pulse Resp BP Sys/Farmer Pulse Ox Last 24 Hr 98 F-99 F 57-78 11-20 96-121/54-83 95-100 GENERAL: The patient is awake, alert, and fully oriented, in no acute distress. HEAD: Normal with no signs of trauma. EYES: Extraocular movements intact, sclera anicteric, conjunctiva clear. No ptosis. ENT: Ears normal, nares patent, oropharynx clear without exudates, moist mucous membranes. NECK: Trachea midline, full range of motion, supple. LUNGS: Breath sounds equal, clear to auscultation bilaterally, no wheezes, no crackles, no accessory muscle use. HEART: Regular rate and rhythm, S1, S2 without murmur, rub or gallop. ABDOMEN: Soft, +tenderness to LUQ and LLQ, nondistended, normoactive bowel sounds, no guarding, no rebound, no hepatosplenomegaly, no masses. Drain in place draining serosanginous fluid EXTREMITIES: 2+ pulses, warm, well-perfused, no edema. NEUROLOGICAL: Cranial nerves II through XII grossly intact. Normal speech, gait not observed. PSYCH: Normal mood, normal affect. SKIN: Warm, dry, normal turgor, no rashes or lesions noted Laboratory Results - last 24 hr 03/04/17 03/04/17 06:00 06:00 WBC 8.6 RBC 3.47 L Hgb 10.7 D Hct 32.1 L MCV 92.3 MCH 30.8 MCHC 33.4 RDW 13.6 Plt Count 146 MPV 10.4 Neutrophils % 78.5 Lymphocytes % 11.8 Monocytes % 9.6 Eosinophils % 0.0 D Basophils % 0.1 Sodium 138 Potassium 3.6 Chloride 103 Carbon Dioxide 30 Anion Gap 5 L BUN 3 L Creatinine 0.6 Random Glucose 109 H Calcium 8.3 L Active Medications Generic Name Dose Route Start Last Admin Trade Name Freq PRN Reason Stop Dose Admin Acetaminophen 650 mg 03/04/17 12:00 03/04/17 12:15 Tylenol - PO 03/05/17 11:59 650 mg Q6H JEAN Administration Heparin Sodium (Porcine) 5,000 unit 03/03/17 22:00 03/04/17 09:31 Heparin - SQ 5,000 unit BID JEAN Administration Sodium Chloride 1,000 mls @ 75 mls/hr 03/04/17 14:30 03/04/17 15:11 Normal Saline - IV 75 mls/hr ASDIR JEAN Administration Ketorolac Tromethamine 30 mg 03/04/17 10:01 03/04/17 10:57 Toradol Injection - IVPUSH 03/05/17 10:00 30 mg Q8H-IV PRN Administration PAIN Oxycodone HCl 10 mg 03/04/17 01:23 03/04/17 09:31 Roxicodone - PO 10 mg Q4H PRN Administration PAIN LEVEL 6-10 Promethazine HCl 12.5 mg 03/04/17 14:28 03/04/17 15:50 Phenergan Injection - IVPB 12.5 mg Q6H PRN Administration NAUSEA AND/OR VOMITING Senna 2 tab 03/04/17 10:54 Senna - PO HS PRN CONSTIPATION ASSESSMENT/PLAN: 26 year old female with no PMH who presented to the ED with left lower quadrant abdominal pain, associated with nausea and vomiting. She was admitted for acute cholecystitis Problem List - Problems (1) Acute cholecystitis due to biliary calculus Assessment/Plan: POD #1 Full liquid diet Toradol 30 mg IVP Q8 PRN Abx discontinued Promethazine 12.5mg IV Q6 PRN for nausea/vomiting Roxicodone 10 mg Q4 PRN Tylenol 650 PO Q6 IVF @ 75 cc/hr (2) DVT prophylaxis Assessment/Plan: Heparin 5000 unit sq BID Visit type - Emergency Visit Emergency Visit: No - New Patient This patient is new to me today: No - Critical Care Critical Care patient: No
--- NOTE | 2017-03-04 18:17 | PN ---
Teaching Attending Note Name of Resident: Luisito Clark ATTENDING PHYSICIAN STATEMENT I saw and evaluated the patient. I reviewed the resident's note and discussed the case with the resident. I agree with the resident's findings and plan as documented. SUBJECTIVE: OBJECTIVE: Vital Signs Period Temp Pulse Resp BP Sys/Farmer Pulse Ox Last 24 Hr 98 F-99 F 57-78 12-20 96-121/54-72 98-100 ASSESSMENT AND PLAN: 26 yo F with no PMH presented to ER with RUQ pain and found to have acute cholecysitis 1. Acute cholecysitis- clinically improved. NPO for surgery today. on Flagyl/ Levaquin day 2. cont IVF, pain and nausea control. further management per surgery. 2. DVT ppx- hep sq after surgery
[2017-03-05] MEDS: ACETAMINOPHEN 325 MG TABLET (FP) PO SCH ×2 (00:26→06:00)
[2017-03-05] MEDS: SODIUM CHLORIDE 1,000 ML IV SCH (05:59)
[2017-03-05 07:50] LABS: BASOPHIL 0.5 % (0-2.0); EOSINOPHIL 0.6 % (0-4.5); MCH 30.8 pg (25.7-33.7); MCHC 32.8 g/dl (32.0-36.0); MEAN CELL VOLUME 93.9 fl (80-96); MEAN PLT VOLUME 10.7 fl (7.5-11.1); NEUTROPHILS 53.9 % (42.8-82.8); PLATELET COUNT 134 K/MM3 (134-434); RDW 13.3 % (11.6-15.6); WHITE BLOOD COUNT 6.1 K/mm3 (4.0-10.0)
[2017-03-05 08:22] LABS: ALBUMIN 2.4 g/dl (3.4-5.0); ANION GAP 6 (8-16); CALCIUM 7.8 mg/dL (8.5-10.1); CO2 31 mmol/L (21-32); GLUCOSE,RANDOM 82 mg/dL (74-106)
[2017-03-05 08:27] LABS: ALK PHOS 48 U/L (45-117); BILIRUBIN,TOTAL 0.6 mg/dL (0.2-1.0); CREATININE 0.4 mg/dL (0.55-1.02); SGOT/AST 13 U/L (15-37); SGPT/ALT 17 U/L (12-78); TOT PROT 5.1 g/dl (6.4-8.2)
[2017-03-05] MEDS ORDERED: PT OWN MED DRAWER 7, Y5N ONE (08:30)
[2017-03-05] MEDS: PROMETHAZINE HCL 25 MG/1 ML VIAL IVPB PRN (08:39)
[2017-03-05] MEDS ORDERED: KETOROLAC TROMETHAMINE 10 MG TABLET PO PRN (09:22)
[2017-03-05] MEDS ORDERED: PROMETHAZINE HCL 25 MG TABLET PO PRN (09:22)
--- NOTE | 2017-03-05 12:31 | PATH ---
Surgical Pathology Report Patient Name: URIAH JAIME Med. Rec. #: [id number] /Age/Gender: 1990 (Age: 26) / F Account: [id number] Location: [facility] MED/SURG Taken: 03/03/2017 Received: 03/04/2017 Reported: 03/05/2017 Physicians: Yannick Cardoza MD Specimen(s) Received GALLBLADDER Clinical History Acute cholecystitis to biliary calculus Final Diagnosis GALLBLADDER, CHOLECYSTECTOMY: ACUTE AND CHRONIC CHOLECYSTITIS, CHOLELITHIASIS. ONE BENIGN REACTIVE LYMPH NODE. Electronically Signed Herson Contreras M.D. Gross Description Received in formalin, labeled "gallbladder" is an 11.0 x 3.3 x 2.7 cm gallbladder with a 0.2 cm in length portion of cystic duct attached. There is a 1.4 cm in greatest dimension periductal lymph node present. The outer surface is douglas moser with focal defects and varies from smooth to shaggy. The lumen contains yellow, tenacious bile as well as multiple yellow choleliths ranging from 0.1-1.7 cm in greatest dimension. The mucosa is douglas and focally eroded. The wall of the gallbladder ranges from 0.1-0.5 cm. in thickness. [facility] sections are submitted in two cassettes. 03/04/201703/04/2017
[2017-03-05 13:45] VITALS: BP 105/68; PULSE 87; TEMP 98.9
--- NOTE | 2017-03-05 17:16 | PN ---
Teaching Attending Note Name of Resident: Luisito Clark ATTENDING PHYSICIAN STATEMENT I saw and evaluated the patient. I reviewed the resident's note and discussed the case with the resident. I agree with the resident's findings and plan as documented. SUBJECTIVE: OBJECTIVE: Vital Signs Period Temp Pulse Resp BP Sys/Farmer Pulse Ox Last 24 Hr 98.2 F-99.7 F 63-87 18-20 97-105/58-68 99-100 ASSESSMENT AND PLAN:
--- NOTE | 2017-03-05 19:33 | DS ---
Physical Exam: LABS Laboratory Results - last 24 hr Selected Entries 03/05/17 13:44 Temperature 98.9 F Pulse Rate 87 Respiratory 18 Rate Blood Pressure 105/68 Laboratory Tests 03/02/17 03/05/17 10:02 05:35 Sodium 141 143 BUN 10 D 2 L* D ALT 31 17 D Alkaline Phosphatase 66 48 D Total Protein 5.1 L Albumin 2.4 L Lipase 83 HOSPITAL COURSE: Date of Admission:03/02/17 Date of Discharge: 03/05/17 Pre Hospital- 26 yo F with no Pmhx who presented w LL abdominal pain. Pain started at 6 am. Also, noted associated nausea and vomiting. Denieed any fevers or chills any n/v /d. Denied chest pain or pressure. Stated pain is also on her right side. ED- EKG showed NSR. Patient had a abd ct which showed findings of cholelithiasis and cholecystitis. Pt admitted for acute cholecystitis Hospital- Patient underwent lap clyde. She was treated with 3 days of levaquin and flagyl. She had a drain in place and her diet was advanced as tolerated. Patient's drain pulled prior to d/c Post Hospital- Patient was d/c and told to f/u with her PCP and Dr. Cardoza within 1 week. Minutes to complete discharge: 30 Discharge Summary Reason For Visit: ACUTE CHOLECYSTITIS TO BILIARY CALCULUS Condition: Improved - Instructions Diet, Activity, Other Instructions: You were in the hospital for gallbladder surgery Please follow up with your primary care doctor within 1 week. Please follow up with Dr. Cardoza within [address] Cardoza Discharge Instructions Dear URIAH JAIME, Post Operative Instructions Physical activity Resume your normal everyday activity as tolerated no heavy lifting or exercise until seen by your surgeon. You may walk unlimited amounts of and climb stairs. You may resume driving the car when you feel safe and comfortable behind the wheel. Wound care If you have a bandage, leave it on, and keep dry for 48 - 72 hours. After that time discard the outer bandage. If there are tapes on the skin under the outer bandage, leave them in place. They will peel off in the next 7 to 10 days. Do Not peel them off. You may shower 2 days after surgery. If there are tapes present on the skin, they can get wet. Diet There are no dietary restrictions. Eat healthy, high-fiber foods. Drink 6 to 8 glasses of liquid each day. This will assist in keeping your bowels are regular. Pain management You may take Tylenol or acetaminophen or Ibuprofen (for example, Motrin, Advil etc.) Any pain prescription medication ordered should be taken as prescribed for moderate to severe pain. Call Dr. Cardoza for any of the following: Severe pain not relieved by medication Fever of 101 or higher Excessive bleeding or drainage on dressing Inability to urinate Call the office at [phone] for a post operative appointment in 7 - 10 days. If you have any chest pain, shortness of breath, or any new symptoms please come back to the hospital immediately. Referrals: Mati Cardoza MD [Staff Physician] - Karan Eubanks MD [Staff Physician] - Disposition: HOME - Home Medications Comprehensive Discharge Medication List: Ambulatory Orders Acetaminophen [Tylenol] 325 mg PO Q6H PRN #30 tablet MDD 3 g 03/05/17 Problem List - Problems (1) Acute cholecystitis due to biliary calculus (2) DVT prophylaxis This patient is new to me today: No Emergency Visit: No Critical Care patient: No - Discharge Referral Referred to [facility] Yes Physician Referral: Karan Mitchell MD ([facility])
== END 2017-03-05 14:07 | disposition home or self-care (01) | DRG 263 ==
LOC: JER 09:21 → JERBED 18:13 → J7W 21:02
PROVIDERS: ADMIT Internal Medicine; ATTEND Internal Medicine
PROC: 0FT44ZZ Resection of Gallbladder, Percutaneous Endoscopic Approach (ICD-10-PCS; principal; 2017-03-03 15:30)
DX: K80.12 Calculus of gallbladder with acute and chronic cholecystitis without obstruction (principal); R10.32 Left lower quadrant pain
CPT/HCPCS: 36415; 74000-TC; 74177-TC; 80048; 80053; 81003; 81015; 83690; 84703; 85025; 85027; 85610; 85730; 86850; 86900; 86901; 88304-TC; 93005; 93010; 94010; 94760; 99283-25; J1644

== ENCOUNTER 2017-05-21 09:13 | Emergency (ER) | payer OTHER ==
[2017-05-21 09:21] VITALS: TEMP 98.2; BMI 24.2
[2017-05-21] MEDS ORDERED: METOCLOPRAMIDE HCL INJECTION 10 MG/2 ML VIAL IVPB STA (10:21)
[2017-05-21] MEDS ORDERED: SODIUM CHLORIDE 0.9% 1000 ML INFUS.BAG IV ONE (10:21)
--- NOTE | 2017-05-21 10:43 | PDOC ---
History of Present Illness - General Chief Complaint: Pain Stated Complaint: VOMITING Time Seen by Provider: 05/21/17 10:19 History Source: Patient Exam Limitations: No Limitations - History of Present Illness Initial Comments: 05/21/17 10:26 27 yr female with c/o headache started last night with nausea vomit x1 photophobia and right side of her face behind her eye. Pt denies fever no neck pain no history of trauma. Pt states she is on control pills has had a period for 5 days. Timing/Duration: unsure Severity: moderate Past History - Past Medical History Allergies/Adverse Reactions: Allergies Allergy/AdvReac Type Severity Reaction Status Date / Time No Known Allergies Allergy Verified 05/21/17 09:21 Home Medications: Ambulatory Orders Naproxen [Naprosyn -] 500 mg PO BID PRN #14 tablet 05/21/17 Asthma: No Cancer: No Cardiac Disorders: No Diabetes: No HTN: No Seizures: No Thyroid Disease: No - Surgical History Cholecystectomy: Yes - Suicide/Smoking/Psychosocial Hx Smoking History: Never smoked Have you smoked in the past 12 months: No Hx Alcohol Use: No Drug/Substance Use Hx: No Substance Use Type: None Hx Substance Use Treatment: No Review of Systems - Review of Systems Able to Perform ROS?: Yes Is the patient limited Guinean proficient: No Constitutional: No: Symptoms Reported HEENTM: No: Symptoms Reported Respiratory: No: Symptoms reported Cardiac (ROS): No: Symptoms Reported ABD/GI: No: Symptoms Reported : No: Symptoms Reported Musculoskeletal: No: Symptoms Reported Integumentary: No: Symptoms Reported Neurological: Yes: Symptoms reported, See HPI, Headache Psychiatric: No: Anxiety *Physical Exam - Vital Signs Last Vital Signs Temp Pulse Resp BP Pulse Ox 98.2 F 77 20 128/76 100 05/21/17 09:17 05/21/17 09:17 05/21/17 09:17 05/21/17 09:17 05/21/17 09:17 - Physical Exam General Appearance: Yes: Nourished, Appropriately Dressed HEENT: positive: EOMI, KATIE, Normal ENT Inspection, Normal Voice, TMs Normal, Pharynx Normal, Sinus Tenderness (right maxilary ). negative: Pharyngeal Erythema, Tonsillar Exudate, Tonsillar Erythema, Nasal Congestion, Rhinorrhea Neck: positive: Supple. negative: Tender Respiratory/Chest: positive: Lungs Clear, Normal Breath Sounds Cardiovascular: positive: Regular Rhythm, Regular Rate Gastrointestinal/Abdominal: positive: Normal Bowel Sounds, Soft Musculoskeletal: positive: Normal Inspection Extremity: positive: Normal Capillary Refill, Normal Inspection, Normal Range of Motion Integumentary: positive: Normal Color, Dry, Warm Neurologic: positive: Fully Oriented, Alert, Normal Mood/Affect, Normal Response , Motor Strength 5/5 Medical Decision Making - Medical Decision Making 05/21/17 10:29 cc: headache right eye pain with photophobia and nausea since last night. denies injury no history of migraines. denies sinus congestion but has sinus tenderness. 05/21/17 11:14 05/21/17 12:40 pt feels better and is asking to go home. will dc home *DC/Admit/Observation/Transfer Diagnosis at time of Disposition: Migraines Qualifiers: Migraine type: other Status migrainosus presence: without status migrainosus Intractability: not intractable Qualified Code(s): G43.809 - Other migraine, not intractable, without status migrainosus; G43.809 - Other migraine, not intractable, without status migrainosus; G43.809 - Other migraine, not intractable, without status migrainosus - Discharge Dispostion Disposition: HOME Condition at time of disposition: Good - Prescriptions Prescriptions: Naproxen [Naprosyn -] 500 mg PO BID PRN #14 tablet PRN Reason: Headache - Referrals Referrals: Álvaro Mendoza MD [Primary Care Provider] - Theron Mazariegos MD [Staff Physician] - - Patient Instructions Additional Instructions: follow with the neurologist for follow up or your primary care doctor take naprosyn as needed for headache drink at least 2 liters of water a day
[2017-05-21] MEDS ORDERED: METOCLOPRAMIDE HCL INJECTION 10 MG/2 ML VIAL ONE (10:59)
[2017-05-21 13:03] VITALS: BP 107/73; PULSE 69
== END 2017-05-21 13:04 | disposition home or self-care (01) ==
LOC: JERFT 09:13 → JER 09:13
PROC: 3E033GC Introduction of Other Therapeutic Substance into Peripheral Vein, Percutaneous Approach (ICD-10-PCS; principal; 2017-05-21)
PROC: 3E033GC Introduction of Other Therapeutic Substance into Peripheral Vein, Percutaneous Approach (ICD-10-PCS; 2017-05-21)
DX: G43.809 Other migraine, not intractable, without status migrainosus (principal)
CPT/HCPCS: 84703; 99282-25

== ENCOUNTER 2017-11-15 15:04 | Emergency (ER) | payer OTHER ==
[2017-11-15 15:12] VITALS: BMI 25.7
--- NOTE | 2017-11-15 15:48 | PDOC ---
History of Present Illness - General Chief Complaint: Vaginal Bleeding Stated Complaint: VAGINAL DISCHARGE Time Seen by Provider: 11/15/17 15:47 History Source: Patient - History of Present Illness Initial Comments: 11/15/17 15:48 Patient is a 27 year old female who presents to our ED this afternoon c/o 2 day h/o vaginal bleed. Patient states she noticed the bleeding yesterday afternoon while she was urinating and then this afternoon she passed a small clot prompting her visit to the Emergency Department. Patient denies any associated fevers/chills, abdominal cramping but does c/o dysuria and back pain. Patient notes her LMP finished 1 week previous and states she is on oral OCP's. NKDA Surgical: denies As per EMR patient evaluated in our ED on prior occasion for cholecystitis (2016) and headache (05/2017). Past History - Past Medical History Allergies/Adverse Reactions: Allergies Allergy/AdvReac Type Severity Reaction Status Date / Time No Known Allergies Allergy Verified 11/15/17 15:12 Asthma: No Cancer: No Cardiac Disorders: No COPD: No Diabetes: No HTN: No Seizures: No Thyroid Disease: No - Surgical History Cholecystectomy: Yes - Suicide/Smoking/Psychosocial Hx Smoking History: Never smoked Have you smoked in the past 12 months: No Hx Alcohol Use: No Drug/Substance Use Hx: No Substance Use Type: None Hx Substance Use Treatment: No *Physical Exam - Vital Signs Last Vital Signs Temp Pulse Resp BP Pulse Ox 98.9 F 102 H 20 105/69 99 11/15/17 15:09 11/15/17 15:09 11/15/17 15:09 11/15/17 15:09 11/15/17 15:09 - Physical Exam Comments: 11/16/17 12:46 GENERAL: Awake, alert, and fully oriented, in no acute distress HEAD: No signs of trauma EYES: PERRLA, EOMI, sclera anicteric, conjunctiva clear ENT: Auricles normal inspection, hearing grossly normal, nares patent, oropharynx clear without exudates. Moist mucosa NECK: Nontender, no stepoffs, Normal ROM, supple, no lymphadenopathy, JVD, or masses LUNGS: Breath sounds equal, clear to auscultation bilaterally. No wheezes, and no crackles HEART: Regular rate and rhythm, normal S1 and S2, no murmurs, rubs or gallops ABDOMEN: Soft, nontender, normoactive bowel sounds. No guarding, no rebound. No masses : Pelvic exam shows closed cervical os, blood in vaginal vault, no CMT tenderness, non-palpable adenxa. EXTREMITIES: Normal range of motion, no edema. No clubbing or cyanosis. No cords, erythema, or tenderness NEUROLOGICAL: Cranial nerves II through XII intact. 5/5 strength and sensation in all extremities, Normal speech, normal gait, normal cerebellar function SKIN: Warm, Dry, normal turgor, no rashes or lesions noted. ED Treatment Course - LABORATORY CBC & Chemistry Diagram: 11/15/17 16:35 11/15/17 17:19 Medical Decision Making - Medical Decision Making 11/15/17 16:47 27 year old female presents with 2 day h/o vaginal bleed. Mildly tachycardic ( 102), afebrile. DDx include spontaneous , dysfunctional uterine bleeding, 11/15/17 16:55 Pelvic exam shows closed cervical os, scant blood in vaginal vault. 11/15/17 17:00 11/15/17 18:11 UA significant for 1+ blood, (-) leukocyte esterase. Serum negative. No anemia. 11/15/17 18:38 TVUS shows L ovarian and Nabothian cysts -- possibles source of bleed vs. DUB. Patient discharged home with [facility] and referral to resident clinical to establish primary care. I discussed the physical exam findings, ancillary test results and final diagnoses with the patient. I answered all of the patient's questions. The patient was satisfied with the care received and felt comfortable with the discharge plan and treatment plan. The patient will return to the Emergency Department with any new, persistent or worsening symptoms. *DC/Admit/Observation/Transfer Diagnosis at time of Disposition: Vaginal bleeding - Discharge Dispostion Disposition: HOME Condition at time of disposition: Good Admit: No - Referrals Referrals: Janice Barros MD [Staff Physician] - Orestes Pagan MD [Staff Physician] - - Patient Instructions Additional Instructions: Please make follow up appointments with [facility] and primary care (referral provided) for evaluation in the next 48 hours. Return to the Emergency Department for any new/worsening or concerning symptoms. - Post Discharge Activity
[2017-11-15 16:44] LABS: BASO % 0.8 % (0-2.0); EOS % 0.4 % (0-4.5); HEMATOCRIT 41.7 % (32.4-45.2); HEMOGLOBIN 14.1 GM/dL (10.7-15.3); LYMPH % 31.1 % (8-40); MCH 31.7 pg (25.7-33.7); MCHC 33.7 g/dl (32.0-36.0); MEAN PLT VOLUME 11.5 fl (7.5-11.1); MONO % 8.3 % (3.8-10.2); NEUT % 59.4 % (42.8-82.8); PLATELET COUNT 205 K/MM3 (134-434); RBC 4.44 M/mm3 (3.60-5.2); RDW 13.7 % (11.6-15.6); WHITE BLOOD COUNT 6.9 K/mm3 (4.0-10.0)
[2017-11-15] MEDS ORDERED: ACETAMINOPHEN 325 MG TABLET (FP) ONE (16:45)
[2017-11-15] MEDS ORDERED: ACETAMINOPHEN 325 MG TABLET (FP) PO ONE (16:46)
[2017-11-15 17:03] LABS: URINE APPEARANCE CLEAR; URINE BILIRUBIN NEGATIVE (<2.0 mg/dL); URINE BLOOD 1+ (NEGATIVE); URINE COLOR DKYELLOW; URINE GLUCOSE (UA) NEGATIVE (NEGATIVE); URINE KETONE NEGATIVE (NEGATIVE); URINE LEUK ESTERASE NEGATIVE (NEGATIVE); URINE NITRITE NEGATIVE (NEGATIVE)
[2017-11-15 17:08] LABS: URINE PROTEIN 1+ (NEGATIVE)
[2017-11-15 17:11] LABS: EPI CELLS RARE /HPF (FEW); URINE HYALINE CAST 3 /lpf; URINE MUCUS MANY
[2017-11-15 17:49] LABS: ALBUMIN 3.8 g/dl (3.4-5.0); ANION GAP 4 (8-16); BILIRUBIN,TOTAL 0.4 mg/dL (0.2-1.0); BLOOD UREA NITROGEN 9 mg/dL (7-18); CALCIUM 8.9 mg/dL (8.5-10.1); CHLORIDE 109 mmol/L (98-107); CO2 25 mmol/L (21-32); GLUCOSE,RANDOM 86 mg/dL (74-106); SGOT/AST 38 U/L (15-37); SGPT/ALT 61 U/L (12-78); SODIUM 138 mmol/L (136-145)
--- NOTE | 2017-11-15 17:50 | PDOC ---
Attending Attestation - Resident Resident Name: Genevieve Olvera - ED Attending Attestation I have performed the following: I have examined & evaluated the patient, The case was reviewed & discussed with the resident, I agree w/resident's findings & plan, Exceptions are as noted - HPI HPI: 11/15/17 17:44 Ms Lo is a 27 yo F who presents to the ER with a complaint of vaginal bleeding LMP 1 week ago No lightheadedness or chest pain - Physicial Exam PE: 11/15/17 17:45 On exam: Tachycardiac, regular, no murmur CTA No abd tenderness Pelvic exam per Dr Olvera - Medical Decision Making 11/15/17 17:46 27 yo F presenting to the ER with vaginal bleeding DD: DUB, Ovarian cyst rupture, threatened ab Will do: Labs TV US Re assess 11/15/17 18:43 Laboratory Tests 11/15/17 11/15/17 11/15/17 16:35 16:35 16:50 WBC 6.9 Hgb 14.1 D Hct 41.7 D Plt Count 205 D Sodium Potassium Chloride Carbon Dioxide BUN Creatinine Random Glucose Serum , Qual Negative Urine Ketones Negative Urine Nitrite Negative Ur Leukocyte Esterase Negative Urine WBC (Auto) 2 Urine RBC (Auto) 1 Ur Epithelial Cells Rare 11/15/17 17:19 WBC Hgb Hct Plt Count Sodium 138 Potassium 4.0 Chloride 109 H Carbon Dioxide 25 BUN 9 Creatinine 1.0 Random Glucose 86 Serum , Qual Urine Ketones Urine Nitrite Ur Leukocyte Esterase Urine WBC (Auto) Urine RBC (Auto) Ur Epithelial Cells Ultrasound pending US demonstrates Left ovarian cyst Will discharge to home Clinical Impression: Ovarian cyst, initial presentation Pelvic pain, initial presentation
[2017-11-15 17:51] LABS: ALK PHOS 87 U/L (45-117)
[2017-11-15 19:56] VITALS: TEMP 98.1
[2017-11-15 21:14] VITALS: BP 102/54; PULSE 97
== END 2017-11-15 21:18 | disposition home or self-care (01) ==
LOC: JER 15:04
DX: N93.8 Other specified abnormal uterine and vaginal bleeding (principal)
CPT/HCPCS: 36415; 76830-TC; 80053; 81003; 81015; 84703; 85025; 87086; 99283-25

== ENCOUNTER 2018-12-12 14:50 | Inpatient (IN) | payer OTHER ==
[2018-12-12 15:58] VITALS: BMI 30.7
[2018-12-12] MEDS ORDERED: DEXTROSE 5%-LACTATED RINGERS 1,000 ML IV SCH (16:15)
--- NOTE | 2018-12-12 16:23 | HP ---
Past Medical History - Admission Chief Complaint: Labor pain History of Present Illness: 28 yo @ 38 weeks gestation, EDC 12/22/18, admitted for labor pain. Upon admission she was 4cm dilated. History Source: Patient Limitations to Obtaining History: No Limitations - Past Medical History Cardiovascular: No: AFIB, Aneurysm, Aortic Insufficiency, Aortic Stenosis, CAD, CHF, Deep Vein Thrombosis, HTN, Hyperlipdemia, [place], Mitral Insufficiency, Mitral Stenosis, Murmur, Pulmonary Hypertension, Other Pulmonary: No: Asthma, Bronchitis, Cancer, COPD, O2 Dependent, Pneumonia, Previously Intubated, Pulmonary Embolus, Pulmonary Fibrosis, Sleep Apnea, Other Renal/: No: Renal Failure, Renal Inusuff, BPH, Cancer, Hematuria, Hemodialysis , Neurogenic Bladder, Renal Calculi, UTI, Other ...: 4 ...Para: 2 ...Term: 2 ...: 0 ...Spon : 1 ...Induced : 0 ...Multiple Gestation: 0 ...LMP: 03/18/18 ... Weeks Gestation by Dates: 38.3 ...EDC by Dates: 12/23/18 ...EDC by Sono: 12/22/18 Infectious Disease: No: AIDS, C-Diff, Herpes Zoster, HIV, MRSA, STD's, Tuberculosis, VREF, Other Psych: No: Addictions, Anxiety, Bipolar, Depression, Panic, Psychosis, Schizophrenia, Other - Past Surgical History Past Surgical History: Yes: None Hx Myomectomy: No Hx Transabdominal Cerclage: No - Smoking History Smoking history: Never smoked Have you smoked in the past 12 months: No - Alcohol/Substance Use Hx Alcohol Use: No History of Substance Use: reports: None - Social History Usual Living Arrangement: Yes: With Significant Other History of Recent Travel: No Home Medications - Allergies Allergies/Adverse Reactions: Allergies Allergy/AdvReac Type Severity Reaction Status Date / Time No Known Allergies Allergy Verified 12/12/18 15:31 - Home Medications Home Medications: Ambulatory Orders Prenat 115/Iron Fum/Folic/Dss [ 19 Tablet] 1 tab PO DAILY 12/12/18 Review of Systems - Review of Systems Constitutional: reports: No Symptoms Eyes: reports: No Symptoms HENT: reports: No Symptoms Neck: reports: No Symptoms Cardiovascular: reports: No Symptoms Respiratory: reports: No Symptoms Gastrointestinal: reports: No Symptoms Genitourinary: reports: Pain Breasts: reports: No Symptoms Reported Musculoskeletal: reports: No Symptoms Integumentary: reports: No Symptoms Neurological: reports: No Symptoms Endocrine: reports: No Symptoms Hematology/Lymphatic: reports: No Symptoms Psychiatric: reports: No Symptoms Pain Intensity: 6 Physical Exam - Maternity Vital Signs: Vital Signs Temperature 98.4 F 12/12/18 15:47 Pulse Rate 86 12/12/18 15:47 Respiratory Rate 20 12/12/18 15:47 Blood Pressure 110/75 12/12/18 15:47 O2 Sat by Pulse Oximetry (%) Constitutional: Yes: Well Nourished Eyes: Yes: Conjunctiva Clear HENT: Yes: Atraumatic Neck: Yes: Supple Cardiovascular: Yes: Regular Rate and Rhythm Lungs: Clear to auscultation - Abdominal Exam/OB Number of Fetuses: Single Presentation: Vertex - Vaginal Exam/OB Dilatation (cm): 4 Effacement (%): 70 Presentation: Vertex/Position Station: -2 - Physical Exam ...Motor Strength: WNL Psychiatric: Yes: Alert, Oriented Problem List - Problems (1) 38 weeks gestation of Code(s): Z3A.38 - 38 WEEKS GESTATION OF (2) Pain during labor Code(s): O99.89 - OTH DISEASES AND CONDITIONS COMPL PREG/CHLDBRTH; R52 - PAIN, UNSPECIFIED Assessment/Plan 38 weeks gestation Pain in labor Admit to L&D Analgesia as needed Anticipate
[2018-12-12] MEDS ORDERED: OXYTOCIN 30 UNITS in 0.9% NS 30 UNIT/500 ML INFUS.BAG IVPB SCH (16:30)
[2018-12-12] MEDS ORDERED: OXYTOCIN 30 UNITS in 0.9% NS 30 UNIT/500 ML INFUS.BAG IVPB ONE (16:34)
[2018-12-12 17:08] LABS: BASO % 0.1 % (0-2.0); EOS % 0.1 % (0-4.5); HEMATOCRIT 37.6 % (32.4-45.2); HEMOGLOBIN 12.5 GM/dL (10.7-15.3); LYMPH % 13.6 % (8-40); MCH 32.1 pg (25.7-33.7); MCHC 33.2 g/dl (32.0-36.0); MEAN CELL VOLUME 96.7 fl (80-96); MEAN PLT VOLUME 10.1 fl (7.5-11.1); MONO % 7.5 % (3.8-10.2); NEUT % 78.7 % (42.8-82.8); PLATELET COUNT 147 K/MM3 (134-434); RBC 3.88 M/mm3 (3.60-5.2); RDW 13.6 % (11.6-15.6); WHITE BLOOD COUNT 11.6 K/mm3 (4.0-10.0)
[2018-12-12 17:18] LABS: INR 0.97 (0.83-1.09); PROTHROMBIN TIME (PATIENT) 11.4 SEC (9.7-13.0)
[2018-12-12 17:21] LABS: ACTIVATED PTT 26.7 SECONDS (25.2-36.5)
[2018-12-12 17:25] LABS: CALCIUM 8.6 mg/dL (8.5-10.1); CREATININE 0.6 mg/dL (0.55-1.3); POTASSIUM 3.7 mmol/L (3.5-5.1)
[2018-12-12] MEDS ORDERED: PROMETHAZINE HCL 25 MG/1 ML VIAL ONE (18:17)
[2018-12-12] MEDS ORDERED: BUTORPHANOL TARTRATE 2 MG/ML VIAL ONE (18:17)
[2018-12-12] MEDS ORDERED: BUTORPHANOL TARTRATE 2 MG/ML VIAL IVPUSH PRN (18:23)
[2018-12-12] MEDS ORDERED: PROMETHAZINE HCL 25 MG/1 ML VIAL IVPB PRN (18:24)
[2018-12-12] MEDS ORDERED: OXYTOCIN 20 UNITS in 0.9% NS 20 UNIT/1,000 ML INFUS.BAG IV ONE (18:53)
[2018-12-12] MEDS ORDERED: BENZOCAINE 28 GM HEMORRHOIDAL OINTMENT TP PRN (19:14)
[2018-12-12] MEDS ORDERED: METHYLERGONOVINE MALEATE 0.2 MG/1 ML AMP IM PRN (19:14)
[2018-12-12] MEDS ORDERED: WITCH HAZEL 50% (TUCKS) 40 PAD/JAR PAD TP PRN (19:14)
[2018-12-12] MEDS ORDERED: BENZOCAINE 20% 57 GM BOTTLE TP PRN (19:14)
[2018-12-12] MEDS ORDERED: BISACODYL 10 MG SUPP.RECT RC PRN (19:14)
[2018-12-12] MEDS ORDERED: OXYTOCIN 20 UNITS in 0.9% NS 20 UNIT/1,000 ML INFUS.BAG IV SCH (19:15)
--- NOTE | 2018-12-12 19:16 | PN ---
Delivery - Delivery Vaginal Delivery: Spontaneous Type of Anesthesia: Local Episiotomy/Laceration: 1st degree EBL (cc): 300 Delivery, Single - Feeding Plan Initial Plan: Exclusive throughout hospitalization Remarks - Remarks Remarks: Normal spontaneous vaginal delivery of a live girl over first degree laceration. Nose / Oroharynx suctioned @ perineum. Cord clamped and cut. Baby handed to nurse. Placenta expelled spontaneously intact. Laceration repaired with 2.0 Biosyn.
[2018-12-12] MEDS: FERROUS SO4 325 MG TABLET (FP) PO SCH (22:57)
[2018-12-12] MEDS: SENNOSIDES/DOCUSATE COMBO (SENNA PLUS) TABLET (UD) PO PRN (22:58)
[2018-12-13] MEDS: ACETAMINOPHEN 325 MG TABLET (FP) PO PRN ×2 (06:35→16:34)
[2018-12-13] MEDS: IBUPROFEN 600 MG TABLET (FP) PO PRN ×2 (06:35→16:34)
[2018-12-13 07:03] LABS: BASO % 0.2 % (0-2.0); EOS % 0.1 % (0-4.5); HEMATOCRIT 34.5 % (32.4-45.2); HEMOGLOBIN 11.6 GM/dL (10.7-15.3); LYMPH % 12.2 % (8-40); MCH 31.8 pg (25.7-33.7); MCHC 33.7 g/dl (32.0-36.0); MEAN CELL VOLUME 94.5 fl (80-96); MEAN PLT VOLUME 9.8 fl (7.5-11.1); MONO % 9.3 % (3.8-10.2); NEUT % 78.2 % (42.8-82.8); PLATELET COUNT 141 K/MM3 (134-434); RBC 3.65 M/mm3 (3.60-5.2); RDW 13.7 % (11.6-15.6); WHITE BLOOD COUNT 14.5 K/mm3 (4.0-10.0)
[2018-12-13] MEDS ORDERED: OXYTOCIN 20 UNITS in 0.9% NS 20 UNIT/1,000 ML INFUS.BAG IV ONE (07:03)
--- NOTE | 2018-12-13 08:12 | PN ---
Post Progress Note - Subjective Subjective: 28 yo Para 2 status post vaginal delivery, seen and evaluated. Doing well. Post Day: 1 Type of Delivery: Vital Signs: Vital Signs Temperature 99 F 12/13/18 07:20 Pulse Rate 68 12/13/18 07:20 Respiratory Rate 18 12/13/18 07:20 Blood Pressure 107/68 12/13/18 07:20 O2 Sat by Pulse Oximetry (%) Breast Exam: Yes: Soft Uterus: Yes: Fundus Firm Abdomen/GI: Yes: Tolerating PO Lochia: Yes: Rubra Lochia, amount: Small Extremities: Yes: Calves non-tender Perineum: Yes: Laceration (healing) Activity: Ambulating - Labs Labs: CBC WBC 14.5 K/mm3 (4.0-10.0) H 12/13/18 05:20 RBC 3.65 M/mm3 (3.60-5.2) 12/13/18 05:20 Hgb 11.6 GM/dL (10.7-15.3) 12/13/18 05:20 Hct 34.5 % (32.4-45.2) 12/13/18 05:20 MCV 94.5 fl (80-96) 12/13/18 05:20 MCH 31.8 pg (25.7-33.7) 12/13/18 05:20 MCHC 33.7 g/dl (32.0-36.0) 12/13/18 05:20 RDW 13.7 % (11.6-15.6) 12/13/18 05:20 Plt Count 141 K/MM3 (134-434) 12/13/18 05:20 MPV 9.8 fl (7.5-11.1) 12/13/18 05:20 Absolute Neuts (auto) 11.3 K/mm3 (1.5-8.0) H 12/13/18 05:20 Neutrophils % 78.2 % (42.8-82.8) 12/13/18 05:20 Lymphocytes % 12.2 % (8-40) 12/13/18 05:20 Monocytes % 9.3 % (3.8-10.2) 12/13/18 05:20 Eosinophils % 0.1 % (0-4.5) 12/13/18 05:20 Basophils % 0.2 % (0-2.0) 12/13/18 05:20 Nucleated RBC % 0 % (0-0) 12/13/18 05:20 Problem List - Problems (1) 38 weeks gestation of Code(s): Z3A.38 - 38 WEEKS GESTATION OF (2) Pain during labor Code(s): O99.89 - OTH DISEASES AND CONDITIONS COMPL PREG/CHLDBRTH; R52 - PAIN, UNSPECIFIED (3) Status post normal vaginal delivery Code(s): EKX0813 - Assessment/Plan Status post vaginal delivery Stable Continue routine care
[2018-12-13] MEDS: FERROUS SO4 325 MG TABLET (FP) PO SCH ×2 (09:07→21:28)
[2018-12-13] MEDS: PRENATAL VITAMINS W/ FOLIC ACID TABLET (FP) PO SCH (09:07)
[2018-12-13] MEDS: SENNOSIDES/DOCUSATE COMBO (SENNA PLUS) TABLET (UD) PO PRN (21:28)
[2018-12-14 08:15] VITALS: BP 105/70; PULSE 74; TEMP 98.1
--- NOTE | 2018-12-14 08:42 | DS ---
Physical Examination Vital Signs: Vital Signs Temperature 98.1 F 12/14/18 08:15 Pulse Rate 74 12/14/18 08:15 Respiratory Rate 18 12/14/18 08:15 Blood Pressure 105/70 12/14/18 08:15 O2 Sat by Pulse Oximetry (%) Constitutional: Yes: Well Nourished, No Distress, Calm Eyes: Yes: WNL, Conjunctiva Clear, EOM Intact HENT: Yes: WNL, Atraumatic, Normocephalic Neck: Yes: WNL, Supple, Trachea Midline Cardiovascular: Yes: WNL, Regular Rate and Rhythm Respiratory: Yes: WNL, Regular, CTA Bilaterally Gastrointestinal: Yes: WNL, Normal Bowel Sounds Musculoskeletal: Yes: WNL Extremities: Yes: WNL Edema: No Integumentary: Yes: WNL Neurological: Yes: WNL, Alert, Oriented ...Motor Strength: WNL Psychiatric: Yes: WNL Labs: CBC, BMP 12/13/18 05:20 12/12/18 16:20 Discharge Summary Reason For Visit: LABOR Current Active Problems 38 weeks gestation of (Acute) Pain during labor (Acute) Status post normal vaginal delivery (Acute) Procedures: Principal: Other Procedures: Hospital Course: Patient presented in active labor She had an uncomplicated She met all milestones and was discharged home on PPD#2 M. MD Shane Condition: Stable - Instructions Diet, Activity, Other Instructions: Regular Diet Referrals: Jaja Lnyn MD [Staff Physician] - Disposition: HOME - Home Medications Comprehensive Discharge Medication List: Ambulatory Orders Prenat 115/Iron Fum/Folic/Dss [ 19 Tablet] 1 tab PO DAILY 12/12/18 Ibuprofen 600 mg PO Q6H PRN #30 tablet 12/14/18
[2018-12-14] MEDS: PRENATAL VITAMINS W/ FOLIC ACID TABLET (FP) PO SCH (09:47)
[2018-12-14] MEDS: FERROUS SO4 325 MG TABLET (FP) PO SCH (09:47)
[2018-12-14] MEDS: ACETAMINOPHEN 325 MG TABLET (FP) PO PRN (09:48)
[2018-12-14] MEDS: IBUPROFEN 600 MG TABLET (FP) PO PRN (09:48)
== END 2018-12-14 13:00 | disposition home or self-care (01) | DRG 560 ==
LOC: JLDR 14:50 → J3W 21:58
PROVIDERS: ADMIT Obstetrics & Gynecology; ATTEND Obstetrics & Gynecology
PROC: 10E0XZZ Delivery of Products of Conception, External Approach (ICD-10-PCS; principal; 2018-12-12)
PROC: 0HQ9XZZ Repair Perineum Skin, External Approach (ICD-10-PCS; 2018-12-12)
DX: O70.0 First degree perineal laceration during delivery (principal); Z3A.38 38 weeks gestation of pregnancy; Z37.0 Single live birth
CPT/HCPCS: 36415; 59409; 80048; 85025; 85610; 85730; 86593; 86850; 86900; 86901